=== PATIENT | female | born 1980 | race Caucasian/White ===

== ENCOUNTER → 2018-02-26 | Outpatient (CLI) | payer BC, OTHER | LOC: BMCIMAGING 11:25 | PROVIDERS: ATTEND Internal Medicine | DX: R05 Cough (principal) ==

== ENCOUNTER 2018-06-11 04:27 | Emergency (ER) | payer BC ==
[2018-06-11] MEDS ORDERED: ONDANSETRON 4 MG/2 ML VIAL IVP ONE (04:35)
[2018-06-11] MEDS ORDERED: NS 1,000 ML IV ONE (04:35)
[2018-06-11 04:47] LABS: PLATELET COUNT 270 10^3/uL (150-400)
--- NOTE | 2018-06-11 04:55 | EDPHY ---
H & P Stated Complaint: Chill, fever, generalized abd pain, vomiting x4 hours Time Seen by Provider: 06/11/18 04:34 HPI/ROS: HPI The patient presents with nausea, vomiting which began 4 hr ago, patient has had total of 4 episodes of watery emesis associated with mild diarrhea and generalized cramping abdominal pain. This is associated with fevers and chills and diffuse myalgias. She has been sick for the last few days with myalgias. REVIEW OF SYSTEMS 10 systems were reviewed and negative with the exception of the elements mentioned in the history of present illness. PMHx: Healthy, has breast implants Soc Hx: Nonsmoker, here with her mother PHYSICAL General Appearance: Alert, no distress Eyes: Pupils equal and round no pallor or injection ENT, Mouth: Mucous membranes moist Respiratory: There are no retractions, lungs are clear to auscultation Cardiovascular: Tachycardic rate and regular rhythm Gastrointestinal: Abdomen is soft and non-tender, no masses, bowel sounds normal Neurological: A&O, moves all extremities Skin: Warm and dry, no rashes Musculoskeletal: Neck is supple non tender Extremities: symmetrical, full range of motion Psychiatric: Patient is oriented X 3, there is no agitation Source: Patient Exam Limitations: No limitations - Personal History LMP (Females 10-55): 8-14 Days Ago Current Tetanus Diphtheria and Acellular Pertussis (TDAP): Yes Tetanus Vaccine Date: 2013 - Medical/Surgical History Hx Asthma: No Hx Chronic Respiratory Disease: No Hx Diabetes: No Hx Cardiac Disease: No Hx Renal Disease: No Hx Cirrhosis: No Hx Alcoholism: No Hx HIV/AIDS: No Hx Splenectomy or Spleen Trauma: No Other PMH: Verterbra surgery - Social History Smoking Status: Never smoked Constitutional: Initial Vital Signs Temperature (C) 36.5 C 06/11/18 04:31 Heart Rate 107 H 06/11/18 04:31 Respiratory Rate 18 06/11/18 04:31 Blood Pressure 162/117 H 06/11/18 04:31 O2 Sat (%) 96 06/11/18 04:31 O2 Delivery Mode Room Air Allergies/Adverse Reactions: acetaminophen [From Tylenol] Allergy (Verified 06/11/18 04:34) Abdominal Pain Home Medications: Medication Instructions Recorded Amoxicillin 06/11/18 CULTURELLE 06/11/18 Doxycycline Calcium 06/11/18 Ondansetron Odt [Zofran Odt 4 mg 4 mg PO Q4 PRN #10 tab 06/11/18 (*)] Zoloft 25mg (*) 06/11/18 Medical Decision Making Differential Diagnosis: 38-year-old female presents from home with nausea, vomiting, generalized abdominal pain in the setting of myalgias and fevers for the last few days. Here, she is tachycardic, afebrile, generally well-appearing. Plan for IV fluids, Zofran, basic labs. CBC demonstrates leukocytosis and likely hemoconcentration. Chemistry panel demonstrates mild hypokalemia, elevated CO2 and mild anion gap suggestive of acidosis likely related to vomiting/dehydration. Patient did well with above treatments and on reassessment, was feeling much better. She was able to tolerate fluids without difficulty. I plan to discharge her to home with antiemetics. I suspect she has a viral gastroenteritis. - Data Points Laboratory Results: Laboratory Results 06/11/18 04:40 06/11/18 04:40 06/11/18 06/11/18 04:40 04:40 WBC 12.67 10^3/uL H 10^3/uL (3.80-9.50) RBC 5.03 10^6/uL 10^6/uL (4.18-5.33) Hgb 16.6 g/dL H g/dL (12.6-16.3) Hct 47.7 % H % (38.0-47.0) MCV 94.8 fL fL (81.5-99.8) MCH 33.0 pg pg (27.9-34.1) MCHC 34.8 g/dL g/dL (32.4-36.7) RDW 11.8 % % (11.5-15.2) Plt Count 270 10^3/uL 10^3/uL (150-400) MPV 9.0 fL fL (8.7-11.7) Neut % (Auto) 68.4 % % (39.3-74.2) Lymph % (Auto) 20.8 % % (15.0-45.0) [place] % (Auto) 8.7 % % (4.5-13.0) Eos % (Auto) 1.4 % % (0.6-7.6) Baso % (Auto) 0.5 % % (0.3-1.7) Nucleat RBC Rel Count 0.0 % % (0.0-0.2) Absolute Neuts (auto) 8.67 10^3/uL H 10^3/uL (1.70-6.50) Absolute Lymphs (auto) 2.63 10^3/uL 10^3/uL (1.00-3.00) Absolute Monos (auto) 1.10 10^3/uL H 10^3/uL (0.30-0.80) Absolute Eos (auto) 0.18 10^3/uL 10^3/uL (0.03-0.40) Absolute Basos (auto) 0.06 10^3/uL 10^3/uL (0.02-0.10) Absolute Nucleated RBC 0.00 10^3/uL 10^3/uL (0-0.01) Immature Gran % 0.2 % % (0.0-1.1) Immature Gran # 0.03 10^3/uL 10^3/uL (0.00-0.10) Sodium 140 mEq/L mEq/L (135-145) Potassium 3.3 mEq/L L mEq/L (3.5-5.2) Chloride 108 mEq/L mEq/L (97-110) Carbon Dioxide 17 mEq/l L mEq/l (22-31) Anion Gap 15 mEq/L H mEq/L (6-14) BUN 8 mg/dL mg/dL (7-23) Creatinine 0.7 mg/dL mg/dL (0.6-1.0) Estimated GFR > 60 Glucose 140 mg/dL H mg/dL (70-100) Calcium 9.8 mg/dL mg/dL (8.5-10.4) Total Bilirubin 0.6 mg/dL mg/dL (0.1-1.4) AST 24 IU/L IU/L (14-46) ALT 24 IU/L IU/L (9-52) Alkaline Phosphatase 72 IU/L IU/L (38-126) Total Protein 8.3 g/dL H g/dL (6.3-8.2) Albumin 4.6 g/dL g/dL (3.5-5.0) Medications Given: Discontinued Medications Sodium Chloride (Ns) 1,000 mls @ 0 mls/hr IV EDNOW ONE; Wide Open PRN Reason: Protocol Stop: 06/11/18 04:36 Last Admin: 06/11/18 04:45 Dose: 1,000 mls Ondansetron HCl (Zofran) 4 mg IVP EDNOW ONE Stop: 06/11/18 04:36 Last Admin: 06/11/18 04:45 Dose: 4 mg Ondansetron HCl (Zofran Odt 4 Mg Prepack#2) 1 btl TAKEHOME EDNOW ONE Stop: 06/11/18 06:34 Last Admin: 06/11/18 06:48 Dose: 1 btl Promethazine HCl (Phenergan 25 Mg Prepack #4) 1 btl TAKEHOME EDNOW ONE Stop: 06/11/18 06:43 Last Admin: 06/11/18 06:51 Dose: 1 btl Departure - Departure Disposition: Home, Routine, Self-Care Clinical Impression: Myalgia Vomiting Qualifiers: Vomiting type: unspecified Vomiting Intractability: non-intractable Nausea presence: with nausea Qualified Code(s): R11.2 - Nausea with vomiting, unspecified Condition: Good Instructions: Ondansetron (By mouth), Promethazine (Into the rectum), Dehydration (ED), Acute Nausea and Vomiting (ED) Additional Instructions: Please return to the emergency department if your worse in any way. Referrals: Thi Ortega MD [Primary Care Provider] - As per Instructions Prescriptions: Ondansetron Odt [Zofran Odt 4 mg (*)] 4 mg PO Q4 PRN #10 tab PRN Reason: Nausea/Vomiting, Can'T Take Po
[2018-06-11] MEDS ORDERED: ONDANSETRON 4MG PREPACK#2 BTL TAKEHOME ONE (06:33)
[2018-06-11] MEDS ORDERED: PROMETHAZINE 25 MG PREPACK #4 BTL TAKEHOME ONE (06:42)
[2018-06-11 06:59] VITALS: BP 127/83
== END 2018-06-11 06:59 | disposition home or self-care (01) ==
DX: R11.2 Nausea with vomiting, unspecified (principal); M79.10 Myalgia, unspecified site; R10.84 Generalized abdominal pain; E86.9 Volume depletion, unspecified; Z98.82 Breast implant status
CPT/HCPCS: 96374; J2405